=== PATIENT | female | born 1970 | race Caucasian/White ===

== ENCOUNTER 2017-08-13 01:59 | Emergency (ER) | payer OTHER ==
[~2017-08-13] VITALS: Ht 167.6 cm; Wt 75.9 kg
[~2017-08-13 01:59] MED LIST: SERO100T PO; TRAM50 PO
[2017-08-13 02:04] VITALS: BP 156/95; PULSE 96; RESP 18; TEMP 98.9; O2SAT 97
[2017-08-13 02:15] VITALS: O2SAT 97
[2017-08-13] MEDS ORDERED: SODIUM CHLORIDE 0.9% FLUSH 10 ML FLUSH IVF PRN (02:15)
--- NOTE | 2017-08-13 02:24 | PD ---
HPI Chief Complaint: Respiratory Symptoms Time Seen by Provider: 02:08 Travel History International Travel<30 days: No Contact w/Intl Traveler<30days: No Traveled to known affect area: No History of Present Illness HPI c/o sharp pain to back near her left shoulder blade, 8/10, worse with deep breath, nonrad. no alleviating factors. ....no associated factors such as fever /cough/chest pain/abdominal pain/n/v/d/sob/low oxygen all:denies pmhx: hypothyroid on synthroid, anxiety attack quit smoking 6 years ago PFSH Past Medical History Blood Disorders: No Anxiety: Yes Cancer: No Cardiovascular Problems: No Diabetes: No Diminished Hearing: No Gastrointestinal Disorders: No Genitourinary: No Headaches: Yes Immune Disorder: No Implanted Vascular Access Dvce: No Musculoskeletal: Yes (CHRONIC MID AND LOW BACK PAIN) Neurologic: Yes Reproductive: No Respiratory: Yes (WHEN I AM HAVING AN ANXIETY ATTACK) ?: Not LMP: 07/17/17 Past Surgical History Other Surgery: No Social History Alcohol Use: No Tobacco Use: Yes Substance Use: Yes Allergies-Medications (Allergen,Severity, Reaction): Coded Allergies: No Known Allergies (Verified Adverse Reaction, Unknown, 08/13/17) PATIENT UNABLE TO APPROPRIATELY ANSWER TO CONFIRM DUE TO MEDICATION OVERDOSE Reported Meds & Prescriptions Reported Meds & Active Scripts Active Ultram (Tramadol HCl) 50 Mg Tab 1 Tab PO Q6HPRN FOR PAIN Reported Seroquel (Quetiapine Fumarate) 100 Mg Tab 100 Mg PO HS Review of Systems Except as stated in HPI: all other systems reviewed are Neg General / Constitutional: No: Fever Eyes: No: Visual changes HENT: No: Headaches Cardiovascular: No: Chest Pain or Discomfort Respiratory: Positive: Pleuritic Pain Gastrointestinal: No: Abdominal Pain Genitourinary: No: Dysuria Musculoskeletal: No: Pain Skin: No Rash Neurologic: No: Weakness Psychiatric: No: Depression Endocrine: No: Polydipsia Hematologic/Lymphatic: No: Easy Bruising Physical Exam Narrative GENERAL: SKIN: Warm and dry. HEAD: Atraumatic. Normocephalic. EYES: Pupils equal and round. No scleral icterus. No injection or drainage. ENT: No nasal bleeding or discharge. Mucous membranes pink and moist. NECK: Trachea midline. No JVD. CARDIOVASCULAR: Regular rate and rhythm. RESPIRATORY: No accessory muscle use. Clear to auscultation. Breath sounds equal bilaterally. GASTROINTESTINAL: Abdomen soft, non-tender, nondistended. MUSCULOSKELETAL: Extremities without clubbing, cyanosis, or edema. No obvious deformities. NEUROLOGICAL: Awake and alert. No obvious cranial nerve deficits. Motor grossly within normal limits. Five out of 5 muscle strength in the arms and legs. Normal speech. PSYCHIATRIC: Appropriate mood and affect; insight and judgment normal. Data Data Last Documented VS Vital Signs Date Time Temp Pulse Resp B/P (MAP) Pulse Ox O2 Delivery O2 Flow Rate FiO2 08/13/17 02:04 98.9 96 18 156/95 (115) 97 Orders Orders Electrocardiogram (08/13/17 02:09) B-Type Natriuretic Peptide (08/13/17 02:09) Ckmb (Isoenzyme) Profile (08/13/17 02:09) Complete Blood Count With Diff (08/13/17 02:09) Comprehensive Metabolic Panel (08/13/17 02:09) Prothrombin Time / Inr (Pt) (08/13/17 02:09) Act Partial Throm Time (Ptt) (08/13/17 02:09) Troponin I (08/13/17 02:09) Lipase (08/13/17 02:09) Ecg Monitoring (08/13/17 02:09) Bilateral Bp Monitoring (08/13/17 02:09) Iv Access Insert/Monitor (08/13/17 02:09) Oximetry (08/13/17 02:09) Oxygen Administration (08/13/17 02:09) Sodium Chloride 0.9% Flush (Ns Flush) (08/13/17 02:15) Ct Pulmonary Angiogram (08/13/17 02:09) MDM Medical Decision Making Medical Screen Exam Complete: Yes Emergency Medical Condition: Yes Medical Record Reviewed: Yes Differential Diagnosis pna v pulm embolus v pleurisy Narrative Course As soon as patient was not made aware of the plan to do an IVP as well as CT chest to rule out PE, blood work. The patient refused, she does not want to have any needles placed, despite the fact that I explained that she will not have a needle simply a catheter for the IV which as necessary for her testing to attempt to rule out pulmonary embolus versus dissection versus aortic aneurysm versus pericardial effusion versus pericarditis. The patient stated that she would rather go home then to have an IV placed. Patient has been made aware that her decision to AMA this around to make however she has been advised that to do so increases her risk of the possibility of having any of those diagnoses that I mentioned in my differential. Patient accepts responsibility for her decision, which includes permanent disability and . Diagnosis Primary Impression: ama Additional Instructions: AMA: The risks of leaving against medical advice without further evaluation treatment were discussed with the patient. These risks include cardiac dysfunction, cardiac dysrhythmia, possible heart attack, possible stroke or . The patient indicated understanding of these risks and appeared to have the capacity to make this decision. Disposition: 07 AGAINST MEDICAL ADVICE Damian Mak MD Aug 13, 2017 02:24
[2017-08-13] MEDS ORDERED: SYNT25TA PO (02:27)
== END 2017-08-13 02:40 | disposition left against medical advice (07) ==
LOC: PHED 01:59
DX: M54.9 Dorsalgia, unspecified (principal); E03.9 Hypothyroidism, unspecified; F41.9 Anxiety disorder, unspecified; Z72.0 Tobacco use; Z53.21 Procedure and treatment not carried out due to patient leaving prior to being seen by health care provider
CPT/HCPCS: 99281